=== PATIENT | female | born 1990 | race Caucasian/White ===

== ENCOUNTER 2018-03-24 03:24 | Inpatient (IN) | payer MEDICAID, OTHER ==
[2018-03-24 04:06] LABS: PLATELET COUNT 482 10^3/uL (150-400)
[2018-03-24] MEDS ORDERED: OLANZapine DISINTEGR 10 MG TAB ONE (05:40)
--- NOTE | 2018-03-24 05:43 | EDPHY ---
H & P Stated Complaint: M1 hold, delusional Source: Patient Exam Limitations: Clinical condition - Personal History LMP (Females 10-55): 22-28 Days Ago Current Tetanus/Diphtheria Vaccine: Yes Current Tetanus Diphtheria and Acellular Pertussis (TDAP): Yes - Medical/Surgical History Hx Asthma: Yes Hx Chronic Respiratory Disease: No Hx Diabetes: No Hx Cardiac Disease: No Hx Renal Disease: No Hx Cirrhosis: No Hx Alcoholism: No Hx HIV/AIDS: No Hx Splenectomy or Spleen Trauma: No Other PMH: drug and ETHO abuse - Social History Smoking Status: Light smoker Time Seen by Provider: 03/24/18 04:44 HPI/ROS: HPI The patient presents brought in by ambulance [facility] on an M1 hold for grave disability. The patient brought herself in with her sister saying that she had not slept in 4 days. She was noted to be very disorganized with delusions, claiming that she is in virtual reality and healthcare workers are playing a joke on her. She was oriented x1 only. Her sister says that she does have a history of alcohol abuse and drug use, however has not been herself recently. She had told her sister that she was going to climb out a window recently which was very concerning to her sister who drove from [facility] where the patient is originally from to [place]. The patient was incarcerated briefly though now over the last several days has been out of [facility]. REVIEW OF SYSTEMS 10 systems were reviewed and negative with the exception of the elements mentioned in the history of present illness. PMHx: No prior psychiatric history Soc Hx: Lives in [place], here with her sister, prior history of alcohol and drug abuse PHYSICAL General Appearance: Alert, no distress Eyes: Pupils equal and round no pallor or injection ENT, Mouth: Mucous membranes moist Respiratory: There are no retractions, lungs are clear to auscultation Cardiovascular: Regular rate and rhythm Gastrointestinal: Abdomen is soft and non-tender, no masses, bowel sounds normal Neurological: A&O, moves all extremities Skin: Warm and dry, no rashes Musculoskeletal: Neck is supple non tender Extremities: symmetrical, full range of motion Psychiatric: Patient is oriented to self only, she is alert though has poor eye contact, appears paranoid, and minimally participates in interview (Sangeeta Isbell) Constitutional: Initial Vital Signs Temperature (C) 36.6 C 03/24/18 03:30 Heart Rate 75 03/24/18 03:30 Respiratory Rate 16 03/24/18 03:30 Blood Pressure 127/68 H 03/24/18 03:30 O2 Sat (%) 97 03/24/18 03:30 O2 Delivery Mode Room Air Allergies/Adverse Reactions: No Known Allergies Allergy (Verified 03/24/18 14:19) Home Medications: Medication Instructions Recorded Cephalexin [Keflex (*)] 500 mg PO TID #21 cap 03/24/18 Medical Decision Making ED Course/Re-evaluation: I saw the patient at 10:45 a.m.. She is now oriented but somewhat disorganized and delusional. Apparently there was some problem with authorization for admission. I spoke to Dr. Ascencio [phone] and we reviewed the patient's history as well as labs. We discussed 2 negative toxicology screens for methamphetamine. He authorizes admission. Review of patient's labs shows the patient has apparent UTI. It is sent for culture sensitivity. She is given cephalexin in the emergency department. 2:30 p.m. Patient has been evaluated and accepted for inpatient care at [facility]. (Jakub Jain) Differential Diagnosis: 27-year-old female with past medical history of polysubstance abuse though no past psychiatric history presents from [facility] on an M1 hold for grave disability. She is disorganized, delusional, appears somewhat paranoid. She has been experiencing insomnia recently Here, vital signs are normal, labs were unremarkable. Urine toxicology is positive only for marijuana. Differential diagnosis includes psychotic break, polysubstance abuse, alcohol withdrawal, insomnia leading to psychosis. The patient was stable throughout my shift. She did refuse a dose of Zyprexa. She is awaiting mental health placement. At 7:00 a.m., the case is signed out to the oncoming provider Dr. Jain. (Sangeeta Isbell) - Data Points Laboratory Results: Laboratory Results 03/24/18 03:50 03/24/18 03:50 03/24/18 03/24/18 03/24/18 08:20 03:50 03:50 WBC RBC Hgb Hct MCV MCH MCHC RDW Plt Count MPV Neut % (Auto) Lymph % (Auto) [place] % (Auto) Eos % (Auto) Baso % (Auto) Nucleat RBC Rel Count Absolute Neuts (auto) Absolute Lymphs (auto) Absolute Monos (auto) Absolute Eos (auto) Absolute Basos (auto) Absolute Nucleated RBC Immature Gran % Immature Gran # Sodium Potassium Chloride Carbon Dioxide Anion Gap BUN Creatinine Estimated GFR Glucose Calcium Beta HCG, Qual NEGATIVE Urine Color YELLOW Urine Appearance CLEAR Urine pH 6.0 (5.0-7.5) Ur Specific [place] 1.016 (1.002-1.030) Urine Protein NEGATIVE (NEGATIVE) Urine Ketones NEGATIVE (NEGATIVE) Urine Blood 3+ H (NEGATIVE) Urine Nitrate NEGATIVE (NEGATIVE) Urine Bilirubin NEGATIVE (NEGATIVE) Urine Urobilinogen 2.0 EU H EU (0.2-1.0) Ur Leukocyte Esterase NEGATIVE (NEGATIVE) Urine RBC 50-182 /hpf H /hpf (0-3) Urine WBC 5-10 /hpf H /hpf (0-3) Ur Epithelial Cells TRACE /lpf /lpf (NONE-1+) Urine Mucus TRACE /lpf /lpf (NONE-1+) Urine Glucose NEGATIVE (NEGATIVE) Urine Opiates Screen NEGATIVE NEGATIVE (NEGATIVE) (NEGATIVE) Urine Barbiturates NEGATIVE NEGATIVE (NEGATIVE) (NEGATIVE) Ur Phencyclidine Scrn NEGATIVE NEGATIVE (NEGATIVE) (NEGATIVE) Ur Amphetamine Screen NEGATIVE NEGATIVE (NEGATIVE) (NEGATIVE) U Benzodiazepines Scrn NEGATIVE NEGATIVE (NEGATIVE) (NEGATIVE) Urine Cocaine Screen NEGATIVE NEGATIVE (NEGATIVE) (NEGATIVE) U Marijuana (THC) Screen NON-NEGATIVE H NON-NEGATIVE H (NEGATIVE) (NEGATIVE) Ethyl Alcohol 03/24/18 03/24/18 03:50 03:50 WBC 12.14 10^3/uL H 10^3/uL (3.80-9.50) RBC 4.87 10^6/uL 10^6/uL (4.18-5.33) Hgb 14.8 g/dL g/dL (12.6-16.3) Hct 41.8 % % (38.0-47.0) MCV 85.8 fL fL (81.5-99.8) MCH 30.4 pg pg (27.9-34.1) MCHC 35.4 g/dL g/dL (32.4-36.7) RDW 13.4 % % (11.5-15.2) Plt Count 482 10^3/uL H 10^3/uL (150-400) MPV 9.6 fL fL (8.7-11.7) Neut % (Auto) 76.4 % H % (39.3-74.2) Lymph % (Auto) 15.8 % % (15.0-45.0) [place] % (Auto) 7.0 % % (4.5-13.0) Eos % (Auto) 0.2 % L % (0.6-7.6) Baso % (Auto) 0.4 % % (0.3-1.7) Nucleat RBC Rel Count 0.0 % % (0.0-0.2) Absolute Neuts (auto) 9.26 10^3/uL H 10^3/uL (1.70-6.50) Absolute Lymphs (auto) 1.92 10^3/uL 10^3/uL (1.00-3.00) Absolute Monos (auto) 0.85 10^3/uL H 10^3/uL (0.30-0.80) Absolute Eos (auto) 0.03 10^3/uL 10^3/uL (0.03-0.40) Absolute Basos (auto) 0.05 10^3/uL 10^3/uL (0.02-0.10) Absolute Nucleated RBC 0.00 10^3/uL 10^3/uL (0-0.01) Immature Gran % 0.2 % % (0.0-1.1) Immature Gran # 0.03 10^3/uL 10^3/uL (0.00-0.10) Sodium 139 mEq/L mEq/L (135-145) Potassium 3.5 mEq/L mEq/L (3.5-5.2) Chloride 105 mEq/L mEq/L (97-110) Carbon Dioxide 22 mEq/l mEq/l (22-31) Anion Gap 12 mEq/L mEq/L (6-14) BUN 10 mg/dL mg/dL (7-23) Creatinine 0.6 mg/dL mg/dL (0.6-1.0) Estimated GFR > 60 Glucose 120 mg/dL H mg/dL (70-100) Calcium 10.4 mg/dL mg/dL (8.5-10.4) Beta HCG, Qual Urine Color Urine Appearance Urine pH Ur Specific [place] Urine Protein Urine Ketones Urine Blood Urine Nitrate Urine Bilirubin Urine Urobilinogen Ur Leukocyte Esterase Urine RBC Urine WBC Ur Epithelial Cells Urine Mucus Urine Glucose Urine Opiates Screen Urine Barbiturates Ur Phencyclidine Scrn Ur Amphetamine Screen U Benzodiazepines Scrn Urine Cocaine Screen U Marijuana (THC) Screen Ethyl Alcohol < 10 mg/dL mg/dL (0-10) Medications Given: Discontinued Medications Cephalexin HCl (Keflex) 500 mg PO EDNOW ONE PRN Reason: Protocol Stop: 03/24/18 11:03 Last Admin: 03/24/18 12:08 Dose: 500 mg Departure - Departure Disposition: [facility] IP Clinical Impression: Acute psychosis Urinary tract infection Qualifiers: Urinary tract infection type: site unspecified Hematuria presence: with hematuria Qualified Code(s): N39.0 - Urinary tract infection, site not specified Condition: Fair Referrals: Patient,NotPresent [Unknown] - As per Instructions Prescriptions: Cephalexin [Keflex (*)] 500 mg PO TID #21 cap
[2018-03-24] MEDS ORDERED: CEPHALEXIN 500 MG CAP PO ONE (11:02)
--- NOTE | 2018-03-24 12:51 | PDCONSULT ---
Prekindergarten Teacher Note: HPI: This is a 27 y/o female with history of asthma presenting via ambulance on a M1 hold for delusions. Her sister was with her and reports the pt has not slept in 4 days. Per ER note, she was disorganized with delusions, claiming that she is in virtual reality and healthcare workers are playing a joke on her. Her sister reported the pt does have a history of alcohol and drug abuse - the pt told her she was going to climb out of a window. Past Medical History: Asthma (no medications), no psychiatric history, alcohol and drug abuse. Past Surgical History: no history Social: light smoker. Alcohol and drug abuse. Family History: non-pertinent ROS: all negative except what is mentioned in HPI and down below Constitutional: "I'm good!" HEENT: Negative Cardiovascular: Negative Respiratory: Negative GI: Negative : irregular menstrual cycles, decreased urinary frequency Musculoskeletal: Negative Skin: Negative Neuro: Negative Psychiatric: "Scared." Heme/Lymp: Negative Allergy: Negative Physical Examination Constitutional: Well-nourished appearing female, mildly anxious and paranoid, cooperative HEENT: PERRLA, EOMI, hearing normal. Cardiovascular: S1, S2 heard. No murmurs, gallops or rubs. Respiratory: CTAB GI: Active BS, no abdominal tenderness : deferred Musculoskeletal: Full ROM in all extremities, no pain Skin: warm, no lesions or rashes Neuro: Unremarkable Psychiatric: Paranoid, anxious Heme/Lymp: No lymphopathy Allergy: Negative Case discussed with admitting physician, Dr. Victoriano Webster. A/P: This is a 27 y/o female with history of asthma presenting on a M1 hold for delusions and paranoid thoughts. No prior psychiatric history. When questioned why she hasn't slept in 4 days, she reports a girl has been "pimping me out." Her asthma is exercise-induced. #Abnormal urinalysis: She received Keflex in ER. I am not convinced she has a urinary tract infection as she is afebrile and only mildly leukocytosis. She reports irregular menstrual cycles and denies currently menstruating however d/ t her altered mental state, may be currently menstruating. She also reports no dysuria or vaginal discharge. She did not clarify the meaning of "pimping out, " she denies any recent sexual interactions. -Discontinue antibiotics for now. F/u on urine culture. Monitor vitals and if she becomes symptomatic, check sensitivity of cultures and treat accordingly. -Would consider STD testing as outpatient #Asthma: Exercise-induced. Not medicated. Continue to monitor. Overall, medically the pt is cleared to transfer to Behavioral health.
--- NOTE | 2018-03-24 12:55 | ASMTTCLDSP ---
TLC Discharge Disposition Disposition: Answers: Admit Disposition Notes: Notes: MH evaluation was completed by [facility] who determined pt. was in need of inpt MH admission. TLC consulted with ED Physician, Dr Jakub Jain and Fredi Martinez APN who agreed to admit pt to [facility] unit. Discharge Concerns/Recommendations: Notes: Pt to be admitted to For inpatient Fredi Martinez APN admission, the following psychiatrist agreed to accept patient for admission to Behavioral Health ([facility]): Type of Hold: Answers: M1/72-hour Hold Hold initiated by: Answers: Other Notes: [facility] Date Signed: 03/24/2018 12:53 PM Electronically Signed By:Juana Daly
--- NOTE | 2018-03-24 15:25 | PDCONSULT ---
Pricing Supervisor Note: I have personally seen and evaluated Sonja Lowe. I agree with the assessment and plan as outlined by Jazmyn BAÑUELOS, in a separate note.
[2018-03-24] MEDS ORDERED: MAGNESIUM HYDROXIDE 30 ML UDCUP PO PRN (17:12)
[2018-03-24] MEDS ORDERED: MAG HYDROX/AL HYDROX/SIMETH 30 ML UDCUP PO PRN (17:12)
[2018-03-24] MEDS ORDERED: ACETAMINOPHEN 325 MG TAB PO PRN (17:13)
[2018-03-24] MEDS: OLANZapine DISINTEGR 5 MG TAB PO PRN (17:38)
[2018-03-24] MEDS: NICOTINE POLACRILEX 2 MG GUM B PRN (17:40)
[2018-03-25] MEDS: OLANZapine DISINTEGR 5 MG TAB PO PRN (00:52)
[2018-03-25] MEDS: LORazepam 0.5 MG TAB PO PRN ×2 (00:52→20:02)
[2018-03-25] MEDS: NICOTINE POLACRILEX 2 MG GUM B PRN (16:21)
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
[2018-03-26] MEDS: NICOTINE POLACRILEX 2 MG GUM B PRN ×3 (09:55→18:43)
--- NOTE | 2018-03-26 10:33 | ASMTBHMTP ---
Master Treatment Plan Master Treatment Plan Answers: Impaired Reality for: Date: 03/26/2018 Diagnosis on Admission: Acute Psychosis Expected length of stay: 3-5 Days Reason for admission: Notes: Per MHP Evaluation - Pt. is a 28 year old, female of decent. Ct. lives in [place] with her MOC and SOC (6 yr. old). Ct is not enrolled in school and unemployed. Ct. sees a thx, Bronwyn Friedman in [place]. Ct. is not open to MHP. Ct. is active with Medicaid. Ct. self-presented at [facility] with SOC. Ct reported having trouble sleeping, trouble eating, struggling with meth/opiate addiction and an eating d/o. Ct reported passive SI and 2 out of 10 on intent. Ct. denied being suicidal and affirmed to safety. Collateral: Per SOC, ct called SOC approx. 4 or 5 days ago and claimed MOC had kidnapped her and was holding her hostage. SOC reported this was delusional as ct was in the bathtub, at the time, and safe. SOC attempted to de-escalate ct, but ct became increasingly disorganized. Ct began demanding for SOC to "come immediately...save me fucking now" and told SOC she was actually being held by a denominational cult. Ct eventually called police and police arrived at the home looking for a hostage. Police determined ct was safe, but ct had outstanding warrant for lyon theft and was arrested. While in long term, ct would call SOC and claimed SOC was actually her MOC and her MOC was an impostor. Ct was held in long term overnight and released to SOC care. Ct. gave temporary guardianship to her MO and st. son remained in [place]. SOC reported ct has been cycling in and out of psychosis while at her home. Ct will not be sleeping and enter SOC's room stating, "Mommy hold me" and SOC is unable to provide ct any insight. Patient's stated presenting problems: Notes: Pt. stated she has been dealing with "depression and anxiety and insomnia". Patient's goals for treatment: Notes: Pt. stated to "stay positive". Patient's strengths: Notes: Pt. stated she is "caring, giving and loving". Identify supports outside of hospital: Notes: Pt. stated her mom, sister, [id number] and whole family Discharge criteria: Notes: Psychotic symptoms will be reduced or eliminated with return to baseline functioning in affect, thinking, and behavior prior to discharge. Initial disposition plan/considerations: Notes: Pt. stated she plans to return to [place]. Master Treatment Plan Required Signatures Psychiatrist signature: Answers: Psychiatrist: RN on-shift signature: Answers: RN: Patient signature: Answers: Patient: Date Signed: 03/26/2018 10:32 AM Electronically Signed By:Cortney Barnes
--- NOTE | 2018-03-26 15:58 | ASMTBHFAM ---
Notes Note: Notes: CC met with pt, pt's sister (SOC) Mary Jo ([phone]) and MD. Pt. stated she is planning on staying with her sister in [place]. SOC stated she "don't feel like it's be a good situation" for pt to return to [place], adding pt would be around previous drug related friends. Pt. stated she was getting services through [facility], but stopped going to therapy when she began using drugs again. Pt. stated she wants substance abuse therapy but stated she "won't go to a (residental) rehab center". Pt. stated "I feel mentally capable" of being sober, adding "I don't want to do drugs anymore". Pt. stated "I have the motivation to do it". SOC stated "she's (pt) doing a lot better", adding "can't help but be sceptical". SOC stated she lives at [address] [place] [id number]. SOC discussed working with the [facility] on and . Pt. stated she is willing to get therapy and attend classes at [facility]. SOC stated she is able to pick the pt. up upon discharge. Pt. agreed to stay into Tuesday, attend the treatment team meeting, and allow staff to secure follow up appointments for her. Date Signed: 03/26/2018 03:58 PM Electronically Signed By:Cortney Barnes
--- NOTE | 2018-03-26 17:45 | SOAPPROG ---
SOAP Progress Note Assessment/Plan: Assessment: 27 yo unemployed woman with h/o polysubstance dependence and mood related symptoms admitted after SOC took her to [facility] b/c she had trouble sleeping and was acting bizarrely. Patient admits she has been using meth, opiates, THC and alcohol on regular basis. Plan: 03/26/18 17:33 1. MD and CC met with patient and SOC for family meeting. SOC states she wants patient to participate in residential substance use disorder treatment, but patient refuses. She states "I'm not going to stay in a facility like this." She agrees to "outpatient treatment" but won't commit to IOP, only to "seeing a therapist." MD stressed the significance of her polysubstance dependence and explained the effect of substance use disorder on mood, cognition, motivation, judgment, attention, and decision-making. discussed differences between residential tx, IOP and individual therapy with [facility]. [facility] has contacted several different programs, including [facility], [facility] and [facility] (where patient has done therapy in past). Patient wants to live at [facility]'s house and go to "classes" and "therapy" at [facility]. SOC agrees with this plan , but says she is "skeptical" about patient's motivation for treatment. She says patient was seeing therapist in [place] at [facility], but "just stopped going." Patient agrees she was not adherent to treatment, but says this "time is different." MD and CC answered patient's and SOC's questions. 2. Patient agreed to sign in voluntarily tomorrow AM after her hold expires. She agrees to stay voluntarily until she meets with treatment team in AM and finalizes an aftercare plan. CC left voicemail message with [facility] to try to schedule an intake appointment. 3. Patient's H expires early on Mon AM. She says she will sign in voluntarily as soon as she wakes up. 4. SOC says she doesn't want patient to return to [place] b/c there are too many "bad influences" on her there. But SOC says "I have my own life too" and can't supervise the patient "all the time." She says she can't "always be there " for patient if she continues to use drugs and "mess up." SOC is very concerned about patient b/c she has been down this road before and heard patient say she wants to quit drugs but not follow through. MD encouraged SOC to participate in family therapy if available through [facility] and attend family component of IOP or residential rehab if patient chooses one of those options for treatment. Subjective: MD and CC had extended family meeting with patient and her SOC. Patient plans to live with SOC "temporarily" after discharge while she attends "classes" and therapy at [facility]. SOC says she called [facility], but there is long wait time for an appointment. Patient and SOC would like help from CC to make intake appointment. MD discussed more intense levels of treatment including IOP and residential, but patient says there is "no way" she will do inpatient treatment and refused to consider IOP. MD discussed risks of relapse and the possible adverse effects from continued polysubstance use. Patient said she understood the risks, but knew she could stop using drugs and alcohol if she wasn't around her friends who gave her drugs and used with her in [place]. SOC said she was "skeptical" that patient could stop using drugs on her own, but said she'd told her this until she was "blue in the face" and patient "doesn't listen to me anyway." Patient denied feeling sad, depressed, anxious, helpless, hopeless or worthless. She denied any SI/HI. Objective: Vital Signs Temp Pulse Resp BP Pulse Ox 36.8 C 109 H 16 114/56 L 95 03/26/18 06:00 03/26/18 06:00 03/26/18 06:00 03/26/18 06:00 03/26/18 06:00 MSE: Affect: Euthymic Mood: "OK" TP: Linear TC: Denies any SI/HI Insight/ Judgment: Poor - Time Spent With Patient Time Spent With Patient: 45" - Pending Discharge Pending Discharge Within 24 Hours: Yes Pending Discharge Date: 03/27/18 Pending Discharge Time: 11:00 ICD10 Worksheet Patient Problems: Problems Problem Status Onset Acute psychosis Acute Urinary tract infection Acute
[2018-03-26] MEDS: LORazepam 0.5 MG TAB PO PRN (21:03)
[2018-03-27 06:51] VITALS: BP 115/57
--- NOTE | 2018-03-27 07:29 | ASMTBHDC ---
Notes Note: Notes: CC was able to confirm client's follow up apts: Follow up with: [facility]: Walk-In Only Intake Assessments are provided at the following locations on a first-come, first-served basis: [id number] [place] [address] Tuesday-Tuesday; 8:00am to 2:00pm [facility] [address] [facility] [address] [place] [address] Tuesday; 8:00am to 10:00am Date Signed: 03/27/2018 07:29 AM Electronically Signed By:Itz Pichardo
[2018-03-27] MEDS: NICOTINE POLACRILEX 2 MG GUM B PRN (08:57)
--- NOTE | 2018-03-27 12:06 | BDS ---
[f rep st] BEHAVIORAL HEALTH DISCHARGE SUMMARY REASON FOR ADMISSION: From the ED note dated 03/24/2018, the patient presented by ambulance to the emergency department from [facility] on an M1 hold for grave disability. The patient presented to the Crisis Center reporting she had not slept for 4 days, very disorganized with delusions. The patient has a history of polysubstance abuse. Patient reported using substances prior to this admission and the patient states that this was the reason for her erratic and psychotic behavior. The patient's mentation cleared very quickly after a few days of hospitalization. The patient was admitted involuntarily on an M1 hold due to being gravely disabled. The patient was admitted for safety, crisis stabilization, and medication management. ADMITTING DIAGNOSES: 1. Substance-induced psychosis. 2. Methamphetamine use. 3. Cannabis use disorder, severe. 4. Nicotine dependence. ADMISSION PHYSICAL EXAM: The patient was seen for history and physical consultation on 03/24/2018 for medical clearance for inpatient psychiatric hospitalization and treatment. The patient was medically cleared for inpatient psychiatric hospitalization and treatment. For further details, please refer to consult notes dated 03/24/2018. MAJOR PROCEDURES OR TESTS: None. HOSPITAL COURSE: The most prominent symptoms and behaviors while the patient was here were reports of severe anxiety. The patient presented disorganized and nonsensical. Treatment modalities utilized were milieu and group therapy. Patient has improved considerably with no signs of psychiatric symptoms and no psychiatric symptoms expressed. Patient reports she has improved since admission, states to be in stable condition, feels safe to discharge, and she contracts for safety. Patients response to treatment was good. There were no adverse or unexpected results of treatment. The patient was safe throughout stay, active in treatment, engaged in groups, and was appropriate with staff. Patient met with treatment team prior to discharge to assess readiness to discharge and review discharge plan. The treatment team consensus is the patient in stable condition, has a safe discharge plan, and is ready to discharge today. CONDITION AT DISCHARGE: Patient is in stable condition and is no longer a danger to self or others, and is not gravely disabled due to mental illness. Patient is no longer in need of inpatient level of care, and can be safely and effectively treated within the community. The patients level of risk at time of discharge is low. MSE: The patient is casually dressed and with good hygiene , and looks stated age. Patient is sitting, posture is upright, and position is relaxed. Patient appears awake, alert, and responds appropriately and reasonably during interview. Patient is engaged, relates well to interviewer, and emotional facial expression is appropriate to situation and changes appropriately with topic. Patient is cooperative, makes comfortable eye contact , and movements are voluntary, deliberate, coordinated, and smooth and even with no inappropriate movements. Patient makes laryngeal sounds effortlessly and shares conversation appropriately; pace of conversation is appropriate, and stream of talking is fluent; articulation is clear and understandable; word choice is effortless and appropriate for education level; completes sentences, occasionally pausing to think; rate and volume are appropriate for interview and setting. Patient reports mood as euthymic. Patients affect is stable with full variable range, congruent with mood, and appropriate to speech and circumstances. Patient has linear and logical thinking, with no loose associations, tangential thought, thought blocking, concrete thinking, or any other signs of formal thought disorder. Patient denies suicidal and homicidal ideation, and denies hallucinations and delusions. Patient appears to be a reliable historian with sound judgement and good insight into current condition. Patient has no apparent dysfunction in recent or remote memory noted , and no evidence of gross cognitive dysfunction noted at any point during the interview. DISCHARGE DIAGNOSES: 1. Substance-induced psychosis. 2. Methamphetamine use. 3. Cannabis use disorder, severe. 4. Nicotine dependence. CURRENT MEDICATIONS: After reviewing options, risks, and benefits with the patient, the patient agrees to continue: 1. Nicotine 2 mg p.o. p.r.n. 2. Tylenol 325 mg p.o. q.4 hours p.r.n. DISPOSITION: Patient left hospital independently and voluntarily with her sister and plans to stay with her sister after discharge. FOLLOWUP: charter coordinator reports the appropriate outpatient follow-up services have been established and outpatient appointments have been scheduled. The patient received written instructions with times and dates of outpatient follow-up appointments. The following follow-up recommendations were provided to the patient at discharge: Continue psychotropic medications as prescribed and attend appointments as scheduled. Report any side effects to a psychiatric outpatient provider, a primary care provider, or other health home health care physician. Address any questions or problems concerning the psychotropic medications with a psychiatric outpatient provider, a primary care provider, or other health home health care physician. Contact [facility] or [facility], or go to the nearest emergency room, if you are ever a danger to yourself/others, or unable to care for yourself. As soon as possible, establish a routine medication management treatment with a psychiatric provider, establish routine therapy appointments, and follow-up with a primary care provider. SUBSTANCE ABUSE BRIEF INTERVENTION: Brief intervention regarding the risks of methamphetamine, cannabis, and nicotine abuse is provided to patient with goal to reduce the risk of harm that could result from the continued use of methamphetamine, cannabis, and nicotine with the general aim to investigate the problem, raise awareness of problem, develop a solution with the patient, recommend a specific change or activity, and motivate the patient toward change. Assess substance abuse behavior and give supportive advice about harm reduction, recommend a reduction in hazardous/at-risk consumption patterns, and facilitate referrals for additional specialized treatment with manager critical care. Intermediate goal is for the patient to quit and attend outpatient substance abuse treatment. Intervention focus on intermediate goals to allow for more immediate success in the treatment process to keep the patient motivated. Review following with patient: Cannabis use risks: Short- term use: impaired short-term memory, impaired motor coordination, altered judgement, in high doses paranoia and psychosis. Long-term use addiction, diminished life satisfaction and achievement, symptoms of chronic bronchitis, and increased risk of chronic psychosis disorders if predisposition to such disorders. In withdrawal anger, aggression irritability, anxiety and nervousness, decreased appetite or weight loss, restlessness, and sleep difficulties with strange dreams. Methamphetamine use risks: Short-term: insomnia, irritability, aggressive behavior, hallucinations, delusions, intellectual deficits, anxiety, depression, convulsions, damage to blood vessels in the brain causing strokes, high fevers, collapse of the circulatory system. Long-term: damage to nerve pathways, maybe irreversibly; overstimulation to dopamine impairing dopamine transport and reducing efficiency of dopamine receptors, the reward system becomes worn out, leading to inability to experience pleasure for years. Nicotine dependence: lung cancer , other cancers, heart and circulatory system problems, diabetes, eye problems, infertility and impotence, more prone to respiratory infections, weakened senses , teeth and gum disease, premature aging, second hand smoke. Withdrawal symptoms include strong cravings, anxiety, irritability, restlessness, difficulty concentrating, depressed mood, frustration, anger, increased hunger, insomnia, and constipation or diarrhea. OUTPATIENT SUBSTANCE ABUSE TREATMENT: Patient referred to outpatient provider and treatment for continued treatment related to substance abuse. LEGAL COURSE: Patient was admitted on an M1 hold for involuntary inpatient psychiatric hospitalization. The patient discharged today independently and voluntarily. ATTITUDE AT TIME OF DISCHARGE: The patients attitude was positive at time of discharge, and patient reports looking forward to discharging today. The patient reports she feels safe to discharge, is no longer a danger to herself or others, is in stable condition, and contracts for safety. Patient states she will continue medications as prescribed, and establish medication management treatment with an outpatient provider after discharge. Patient reports she understands the information that has been provided to her, and she understands, accepts, and agrees to psychotropic medications. Patient describes internal protective factors as the coping skills she has learned while hospitalized here, and she plans to continue to practice these coping skills after discharge. LABS AND STUDIES: There were no pending labs or studies at time of discharge. ADVANCE DIRECTIVES: There were no advance directives on file, and patient was full code during this hospitalization. The following psychotropic medication treatment informed consent and recommendations were provided to the patient at time of discharge. Patient reports she understands, accepts, and agrees to the information that has been provided. PSYCHOTROPIC MEDICATION TREATMENT INFORMED CONSENT and RECOMMENDATIONS: Review nature of condition, diagnosis, and prognosis. Review nature and purpose of psychotropic medication treatment. Review type of psychotropic medications being prescribed. Review risk and benefits of psychotropic medication treatment. Review probable length of time will need to take medications. Review risk and benefits of not undergoing psychotropic medication treatment. Review alternative treatments to psychotropic medications. Review psychotropic medications contraindications, side effects, and importance of reporting any side effects to a psychiatric provider, primary care provider, or other health home health care physician. Review importance of her asking a psychiatric provider or primary care provider any questions or problems concerning the psychotropic medications. Review importance of reporting to a psychiatric provider, primary care provider, or other health home health care physician if she plans to or becomes . Review safety plan and the importance to contact [facility] or [facility] , or go to the nearest emergency room, if ever a danger to yourself/others, or unable to care for yourself. Recommend upon discharge to establish routine medication management treatment with a psychiatric provider, establish routine therapy appointments, and follow-up with a primary care provider. Verify patient understands, accepts, and agrees to the information that has been provided. /[id number]/MODL [id number]
== END 2018-03-27 12:09 | disposition home or self-care (01) | DRG 897 ==
LOC: BBEH 16:15
PROVIDERS: ADMIT Registered Nurse; ATTEND Registered Nurse
DX: F15.250 Other stimulant dependence with stimulant-induced psychotic disorder with delusions (principal); F11.250 Opioid dependence with opioid-induced psychotic disorder with delusions; F15.282 Other stimulant dependence with stimulant-induced sleep disorder; F11.282 Opioid dependence with opioid-induced sleep disorder; J45.909 Unspecified asthma, uncomplicated; F17.210 Nicotine dependence, cigarettes, uncomplicated
CPT/HCPCS: 80305; G0480